=== PATIENT | female | born 1950 | race Caucasian/White ===

== ENCOUNTER 2016-12-27 10:30 | Inpatient (IN) | payer OTHER, MEDICARE ==
[~2016-12-27] VITALS: Ht 157.5 cm; Wt 76.2 kg
--- NOTE | 2016-12-27 11:16 | ED Cough/URI ---
General Chief Complaint: Fever-Adult/Adol Stated Complaint: FEVER/CONGESTION Nursing Triage Note: PT REPORTS COUGH FOR SEVERAL WEEKS AND FEVER AND MALAISE SINCE YESTERDAY. SHE REPORTS TAKING TYLENOL AND IBUPROFEN AT HOME. Source: patient Exam Limitations: no limitations History of Present Illness Time seen by provider: 11:15 Initial Comments To ER with a fever up to 103 since yesterday according to family. She is also had a productive cough for several weeks according to family. Timing/Duration: getting worse Severity/Quality: productive cough Prior Episodes/Possible Cause: no prior episodes Associated Symptoms: denies symptoms, cough Allergies and Home Medications Allergies Uncoded Allergies: PCN (Allergy, Unknown, 05/01/11) SULFA (Allergy, Unknown, 05/01/11) Constitutional: see HPI chills fever malaise EENTM: see HPI Respiratory: no symptoms reported see HPI cough Cardiovascular: no symptoms reported Genitourinary: no symptoms reported Musculoskeletal: no symptoms reported Skin: no symptoms reported Psychiatric/Neurological: No Symptoms Reported Hematologic/Lymphatic: No Symptoms Reported Past Mqwjbyb-Hchkrz-Xjfwpa Hx Patient Social History Alcohol Use: Denies Use Recreational Drug Use: No Smoking Status: Never a Smoker Recent Foreign Travel: No Contact w/Someone Who Travel: No Recent Infectious Disease Expo: No Recent Hopitalizations: No Physical Abuse Screen: No Sexual Abuse: No Immunizations Up To Date Date of Pneumonia Vaccine: Sep 11, 2016 Date of Influenza Vaccine: Sep 11, 2016 Seasonal Allergies Seasonal Allergies: Yes Surgeries HX Surgeries: Yes (COLONOSCOPY ) Respiratory Hx Respiratory Disorders: No Cardiovascular Hx Cardiac Disorders: Yes Cardiac Disorders: Chronic Edema/Swelling, High Cholesterol Neurological Hx Neurological Disorders: No Genitourinary Hx Genitourinary Disorders: No Gastrointestinal Hx Gastrointestinal Disorders: Yes Gastrointestinal Disorders: Gastroesophageal Reflux Musculoskeletal Hx Musculoskeletal Disorders: Yes (LUPUS) Endocrine Hx Endocrine Disorders: Yes Endocrine Disorders: Hypothyroidsim HEENT HX ENT Disorders: No Cancer Hx Cancer: No Psychosocial Hx Psychiatric Problems: No Physical Exam Vital Signs Vital Sign - Last 12Hours 12/27/16 10:47 Temp 99.1 Pulse 87 Resp 16 B/P 101/53 Pulse Ox 94 O2 Delivery Room Air Capillary Refill : Less Than 3 Seconds General Appearance: WD/WN no apparent distress Eyes: Bilateral Eye EOMI, Bilateral Eye Normal Inspection, Bilateral Eye PERRL HEENT: PERRL/EOMI normal ENT inspection TMs normal pharynx normal Neck: non-tender full range of motion suppleNo lymphadenopathy (R), No lymphadenopathy (L) Respiratory: lungs clear normal breath sounds no respiratory distress no accessory muscle use Cardiovascular: regular rate, rhythm no murmur Gastrointestinal: normal bowel sounds non tender soft Extremities: normal range of motion non-tender Neurologic/Psychiatric: alert normal mood/affect oriented x 3 Skin: normal color warm/dry Progress/Results/Core Measures Results/Orders Lab Results Laboratory Tests Test 12/27/16 11:20 Range/Units Anion Gap 15 H 5-14 MMOL/L BUN/Creatinine Ratio 20 Band Neutrophils 23 % Basophils # (Auto) 0.0 0.0-0.1 10^3/uL Basophils % (Manual) 0 % Basophils (%) (Auto) 0 0-10 % Blood Morphology Comment NORMAL Blood Urea Nitrogen 25 H 7-18 MG/DL Calcium Level 9.2 8.5-10.1 MG/DL Carbon Dioxide Level 23 21-32 MMOL/L Chloride Level 97 L 98-107 MMOL/L Creatinine 1.28 0.60-1.30 MG/DL Eosinophils # (Auto) 0.0 0.0-0.3 10^3/uL Eosinophils % (Manual) 0 % Eosinophils (%) (Auto) 0 0-10 % Estimat Glomerular Filtration Rate 42 Glucose Level 108 H 70-105 MG/DL Hematocrit 35 35-52 % Hemoglobin 12.0 11.5-16.0 G/DL Lymphocytes # (Auto) 0.9 L 1.0-4.0 X 10^3 Lymphocytes % (Manual) 4 % Lymphocytes (%) (Auto) 3 L 12-44 % Mean Corpuscular Hemoglobin 31 25-34 PG Mean Corpuscular Hemoglobin Concent 34 32-36 G/DL Mean Corpuscular Volume 92 80-99 FL Mean Platelet Volume 9.8 7.4-10.4 FL Monocytes # (Auto) 1.3 H 0.0-1.0 X 10^3 Monocytes % (Manual) 4 % Monocytes (%) (Auto) 5 0-12 % Neutrophils # (Auto) 24.7 H 1.8-7.8 X 10^3 Neutrophils % (Manual) 69 % Neutrophils (%) (Auto) 92 H 42-75 % Platelet Count 276 130-400 10^3/uL Potassium Level 3.0 L 3.6-5.0 MMOL/L Red Blood Count 3.84 L 4.35-5.85 10^6/uL Red Cell Distribution Width 13.2 10.0-14.5 % Sodium Level 135 135-145 MMOL/L White Blood Count 26.9 H 4.3-11.0 10^3/uL Micro Results Microbiology 12/27/16 Influenza Types A,B Antigen (KARON) - Final, Complete My Orders Orders-AGUEDA BO GENERATOR OPERATOR STRAIGHT BEVEL GEAR Cbc With Automated Diff (12/27/16 11:06) Influenza A And B Antigens (12/27/16 11:06) Chest Pa/Lat (2 View) (12/27/16 11:06) Basic Metabolic Panel (12/27/16 11:15) Manual Differential (12/27/16 11:20) Blood Culture (12/27/16 11:33) Lactic Acid Analyzer (12/27/16 11:33) Ua Culture If Indicated (12/27/16 11:33) Saline Lock/Iv-Start (12/27/16 11:33) Ct Chest W (12/27/16 11:41) Iohexol Injection (Omnipaque 300 Mg/Ml 5 (12/27/16 12:00) Ns (Ivpb) (Sodium Chloride 0.9% Ivpb Bag (12/27/16 12:00) Vital Signs/I&O Vital Sign - Last 12Hours 12/27/16 10:47 Temp 99.1 Pulse 87 Resp 16 B/P 101/53 Pulse Ox 94 O2 Delivery Room Air Blood Pressure Mean: 69 Diagnostic Imaging Diagonstic Imaging: Xray Plain Films/CT/US/NM/MRI: chest Comments NAME: ALLISON [facility]LOW [facility] REC#: [id number] PT STATUS: REG ER : 1950 PHYSICIAN: AGUEDA BO GENERATOR OPERATOR [employer] ADMIT DATE: 12/27/16/ER Draft Date of Exam:12/27/16 CHEST PA/LAT (2 VIEW) INDICATION: Fever, abnormal auscultation. FINDINGS: There is an abnormal right upper lobe ovoid parenchymal opacity measuring a transverse diameter of 7.1 cm, less well demarcated on the lateral view. There is a suggestion of some marginal air bronchograms associated with this density. In the setting of fever, pneumonia would be the leading consideration, however owing to its morphology, this will require followup to confirm its resolution as neoplasm could not be excluded. Hilar and mediastinal contours are normal. The left lung clear lung volumes are normal. There is no effusion. IMPRESSION: Ovoid parenchymal opacity in the right upper lobe in the setting of fever most likely reflects pneumonia but followup within 1 to 2 weeks is recommended. Chest radiographs are otherwise unremarkable. Dictated on workstation # [id number] Dict: 12/27/16 1138 Trans: 12/27/16 1151 [facility] [id number] Interpreted by: GAYE MCFARLANE Electronically signed by: Departure Impression Impression: Primary Impression: Pneumonia Qualified Code: J18.1 - Lobar pneumonia, unspecified organism Disposition: HOME, SELF-CARE Condition: Stable Departure-Patient Inst. Decision time for Depature: 11:56 Referrals: CARMELA GUERRA MD (PCP/Family) Primary Care Physician Patient Instructions: Pneumonia, Adult (DC) Add. Discharge Instructions: 1. return to ER for any concerns 2. Follow up with your doctor later this week ' All discharge instructions reviewed with patient and/or family. Voiced understanding. Scripts Levofloxacin (Levaquin)500 Mg Ctmghl498 Mg PO DAILY #7 TAB Prov:AGUEDA BO APRN 12/27/16 AGUEDA BO APRN Dec 27, 2016 11:16
[2016-12-27 11:28] LABS: BASOPHILS % (AUTO) 0 % (0-10); EOSINOPHILS % (AUTO) 0 % (0-10); LYMPHOCYTES # (AUTO) 0.9 X 10^3 (1.0-4.0); LYMPHOCYTES % (AUTO) 3 % (12-44); MEAN CORPUSCULAR HEMOGLOBIN 31 PG (25-34); MEAN CORPUSCULAR HGB CONC 34 G/DL (32-36); MEAN CORPUSCULAR VOLUME 92 FL (80-99); MEAN PLATELET VOLUME 9.8 FL (7.4-10.4); MONOCYTES # (AUTO) 1.3 X 10^3 (0.0-1.0); MONOCYTES % (AUTO) 5 % (0-12); NEUTROPHILS # (AUTO) 24.7 X 10^3 (1.8-7.8); NEUTROPHILS % (AUTO) 92 % (42-75); PLATELET COUNT 276 10^3/uL (130-400); RED BLOOD COUNT 3.84 10^6/uL (4.35-5.85); RED CELL DISTRIBUTION WIDTH 13.2 % (10.0-14.5); WHITE BLOOD COUNT 26.9 10^3/uL (4.3-11.0)
[2016-12-27 11:44] LABS: CALCIUM 9.2 MG/DL (8.5-10.1); CREATININE SERUM 1.28 MG/DL (0.60-1.30)
[2016-12-27 11:48] LABS: BAND NEUTROPHILS 23 %; BASOPHILS % (MANUAL) 0 %; EOSINOPHILS % (MANUAL) 0 %; LYMPHOCYTES % (MANUAL) 4 %; NEUTROPHILS % (MANUAL) 69 %
--- NOTE | 2016-12-27 11:51 | Diagnostic Imaging Report ---
INDICATION: Fever, abnormal auscultation. FINDINGS: There is an abnormal right upper lobe ovoid parenchymal opacity measuring a transverse diameter of 7.1 cm, less well demarcated on the lateral view. There is a suggestion of some marginal air bronchograms associated with this density. In the setting of fever, pneumonia would be the leading consideration, however owing to its morphology, this will require followup to confirm its resolution as neoplasm could not be excluded. Hilar and mediastinal contours are normal. The left lung clear lung volumes are normal. There is no effusion. IMPRESSION: Ovoid parenchymal opacity in the right upper lobe in the setting of fever most likely reflects pneumonia but followup within 1 to 2 weeks is recommended. Chest radiographs are otherwise unremarkable. Dictated by: Dictated on workstation # [id number]
[2016-12-27] MEDS ORDERED: LEVO500T2 PO (11:58)
[2016-12-27] MEDS ORDERED: IOHEXOL 300 MG/ML 50 ML (OMNIPAQUE 300) VIAL IV ONE (12:00)
[2016-12-27] MEDS ORDERED: NS 100 ML (IVPB) BAG IV ONE (12:00)
[2016-12-27] MEDS ORDERED: CEFEPIME INJECTION 2,000 MG in NORMAL SALINE (BAXTER MINI) 50 ML IV ONE (12:45)
--- NOTE | 2016-12-27 12:46 | Diagnostic Imaging Report ---
PROCEDURE: CT chest with contrast only. TECHNIQUE: Multiple contiguous axial images were obtained through the chest after administration of intravenous contrast. INDICATION: Cough, fever, wheeze, abnormal chest x-ray. FINDINGS: Corresponding to the radiographic abnormality is a consolidative type parenchymal infiltrate in the right upper lobe at the apex is present. This does contain multiple predominately peripheral air bronchograms. Its morphology, density and appearance, particularly given the history, is most compatible with pneumonia but as discussed on earlier chest x-ray, this requires radiographic followup with its treatment. Repeat chest x-ray within 2 weeks' time recommended. Right paratracheal superior mediastinal node is not an unexpected finding given the likely adjacent pneumonia. This measures 13 mm. No suspicious tissue in the subcarinal mediastinum. Some mild gaseous distention of the mid to upper third of the thoracic esophagus. The upper abdomen reveals a nonfocal partially visualized liver, negative the adrenals, no upper abdominal lymphadenopathy. The thoracic aorta is patent and nonaneurysmal. There is no central pulmonary arterial filling defect. The heart size and pericardium are unremarkable. There is no pleural fluid. There was no evidence for abscess or empyema. IMPRESSION: 1. Focal consolidative changes, predominantly airspaced disease. The right upper lobe is most suggestive of pneumonia with likely mild reactive adenopathy. Given the opacities, density and morphology, radiographic followup is needed. Repeat chest x-ray within within 2 weeks' time following treatment is recommended. 2. Distention of the thoracic esophagus without identifiable cause. No evidence for abscess or empyema. Dictated by: Dictated on workstation # [id number]
[2016-12-27 13:45] VITALS: BP 147/67
[2016-12-27] MEDS ORDERED: VANCOMYCIN 1500 MG/NS 500 ML IVPB IV NR ×2 (14:30)
[2016-12-27] MEDS: NS W/KCL 40 MEQ/L 1,000 ML IV SCH ×2 (14:31→22:15)
[2016-12-27] MEDS ORDERED: LORA10CA PO (15:08)
[2016-12-27] MEDS ORDERED: NABU750T PO (15:10)
[2016-12-27] MEDS ORDERED: LEVO112T2 PO (15:10)
[2016-12-27] MEDS ORDERED: OMEP20TA33 PO (15:11)
[2016-12-27] MEDS ORDERED: HYDR25TA4 PO (15:12)
[2016-12-27] MEDS ORDERED: EZET1TAB21 PO (15:18)
[2016-12-27] MEDS ORDERED: AMLO5TAB4 PO (15:18)
[2016-12-27] MEDS ORDERED: MULT-974 PO (15:21)
[2016-12-27] MEDS: ACETAMINOPHEN 325 MG TABLET/CAPLET (TYLENOL) PO PRN ×2 (15:28→21:32)
[2016-12-27 15:40] VITALS: BP 93/41
[2016-12-27] MEDS ORDERED: LEVOFLOXACIN 750 MG/D5W 150 ML PRE-MIX IV SCH (16:00)
[2016-12-27] MEDS ORDERED: RT-ALBUTEROL/IPRATROPIUM 3 ML (DUONEB) VIAL INH SCH (18:00)
[2016-12-27] MEDS ORDERED: KCL 20 MEQ TAB (K-DUR) PO ONE (19:30)
--- NOTE | 2016-12-27 19:32 | History & Physicial ---
History of Present Illness History of Present Illness Reason for visit/HPI patient came to the emergency room complaining of coughing for several weeks. Fever 103 and malaise since yesterday. Chest x-ray shows pneumonia. Patient admitted. Surgeries partial hysterectomy 1973. Family history denies asthma TB diabetes heart disease lung disease cancer area History of lupus since 1974 Date of Admission Dec 27, 2016 at 12:40 I consulted on this patient on 12/27/16 19:30 Attending Physician Shama Herrmann MD Admitting Physician Shama Herrmann MD Consult Allergies and Home Medications Allergies Uncoded Allergies: PCN (Allergy, Unknown, 05/01/11) SULFA (Allergy, Unknown, 05/01/11) Home Medications Amlodipine Besylate 5 Mg Tablet 5 MG PO DAILY (Reported) Ezetimibe/Simvastatin 1 Each Tablet 1 EACH PO DAILY (Reported) Hydrochlorothiazide 25 Mg Tablet 25 MG PO DAILY (Reported) Levofloxacin 500 Mg Tablet #7 500 MG PO DAILY Prescribed by: AGUEDA BO on 12/27/16 1158 Levothyroxine Sodium 112 Mcg Tablet 112 MCG PO DAILY (Reported) Loratadine 10 Mg Capsule #0 10 MG PO DAILY (Reported) Multivitamin 1 Each Tablet 1 EACH PO DAILY (Reported) Nabumetone 750 Mg Tablet #0 1,500 MG PO DAILY (Reported) Omeprazole Magnesium 20 Mg Tablet.dr 20 MG PO DAILY (Reported) Past Yhhyuug-Llfrjd-Mtvuks Hx Patient Social History Marrital Status: Alcohol Use: Denies Use Recreational Drug Use: No Smoking Status: Never a Smoker Physical Abuse Screen: No Sexual Abuse: No Recent Foreign Travel: No Contact w/other who traveled: No Recent Hopitalizations: No Recent Infectious Disease Expo: No Immunizations Up To Date Date of Pneumonia Vaccine: Sep 11, 2016 Date of Influenza Vaccine: Sep 11, 2016 Seasonal Allergies Seasonal Allergies: Yes Surgeries HX Surgeries: Yes (COLONOSCOPY ) Surgeries: Hysterectomy Respiratory Hx Respiratory Disorders: No Cardiovascular Hx Cardiovascular Disorders: Yes Cardiac Disorders: Chronic Edema/Swelling, High Cholesterol, Hypertension Neurological Hx Neurological Disorders: No Genitourinary Hx Genitourinary Disorders: No Gastrointestinal Hx Gastrointestinal Disorders: Yes Gastrointestinal Disorders: Gastroesophageal Reflux Musculoskeletal Hx Musculoskeletal Disorders: Yes (LUPUS) Endocrine Hx Endocrine Disorders: Yes Endocrine Disorders: Hypothyroidsim HEENT HX ENT Disorders: No HEENT Disorders: Cataract Cancer Hx Cancer: No Psychosocial Hx Psychiatric Problems: No Constitutional: fever malaise EENTM: no symptoms reported Respiratory: cough Cardiovascular: no symptoms reported Gastrointestinal: no symptoms reported Genitourinary: no symptoms reported Physical Exam Vital Signs Vital Sign - Last 12Hours 12/27/16 10:47 Temp 99.1 Pulse 87 Resp 16 B/P 101/53 Pulse Ox 94 O2 Delivery Room Air Capillary Refill : Less Than 3 Seconds General Appearance: No Apparent Distress WD/WN Eyes: Bilateral Eye Normal Inspection HEENT: Normal ENT Inspection Neck: Full Range of Motion Normal Inspection Non Tender Respiratory: Chest Non Tender Normal Breath Sounds No Accessory Muscle Use No Respiratory Distress Cardiovascular: Regular Rate, Rhythm No Murmur Gastrointestinal: Non Tender Soft Assessment/Plan Assessment and Plan pneumonia. Lupus. Hypertension history Clinical Quality Measures DVT/VTE Risk/Contraindication: Risk Factor Score Per Nursin RFS Level Per Nursing on Admit: 3=High Contraindications-Mechi: Other *list below* MARTHA BALLARD DO Dec 27, 2016 19:32
[2016-12-27 20:06] VITALS: BP 94/58
[2016-12-27] MEDS: ENOXAPARIN 40 MG/0.4 ML (LOVENOX) SYR SC SCH (20:10)
[2016-12-27 23:27] VITALS: BP 94/58
[2016-12-28] MEDS: NS W/KCL 40 MEQ/L 1,000 ML IV SCH ×3 (03:56→21:53)
[2016-12-28 04:00] VITALS: BP 112/71
[2016-12-28] MEDS: ACETAMINOPHEN 325 MG TABLET/CAPLET (TYLENOL) PO PRN (04:01)
[2016-12-28 04:57] LABS: BASOPHILS % (AUTO) 0 % (0-10); EOSINOPHILS % (AUTO) 0 % (0-10); LYMPHOCYTES # (AUTO) 1.5 X 10^3 (1.0-4.0); LYMPHOCYTES % (AUTO) 6 % (12-44); MEAN CORPUSCULAR HEMOGLOBIN 31 PG (25-34); MEAN CORPUSCULAR HGB CONC 34 G/DL (32-36); MEAN CORPUSCULAR VOLUME 92 FL (80-99); MEAN PLATELET VOLUME 9.8 FL (7.4-10.4); MONOCYTES # (AUTO) 0.9 X 10^3 (0.0-1.0); MONOCYTES % (AUTO) 4 % (0-12); NEUTROPHILS # (AUTO) 20.6 X 10^3 (1.8-7.8); NEUTROPHILS % (AUTO) 90 % (42-75); PLATELET COUNT 234 10^3/uL (130-400); RED BLOOD COUNT 3.41 10^6/uL (4.35-5.85); RED CELL DISTRIBUTION WIDTH 13.5 % (10.0-14.5)
[2016-12-28 05:16] LABS: ANION GAP 10 MMOL/L (5-14); BLOOD UREA NITROGEN 20 MG/DL (7-18); BUN/CREATININE RATIO 25; CALCIUM 8.5 MG/DL (8.5-10.1); CARBON DIOXIDE 22 MMOL/L (21-32); CHLORIDE 102 MMOL/L (98-107); CREATININE SERUM 0.79 MG/DL (0.60-1.30); GFR ESTIMATED > 60; GLUCOSE 83 MG/DL (70-105); POTASSIUM 3.9 MMOL/L (3.6-5.0); SODIUM 134 MMOL/L (135-145)
[2016-12-28] MEDS: PANTOPRAZOLE 40 MG (PROTONIX) TAB PO SCH (06:12)
[2016-12-28] MEDS: RT-ALBUTEROL/IPRATROPIUM 3 ML (DUONEB) VIAL INH PRN (08:25)
[2016-12-28 08:31] VITALS: BP 111/73
[2016-12-28] MEDS ORDERED: [UNRECOGNIZED DRUG - OTHER] PO SCH (09:00)
[2016-12-28] MEDS ORDERED: IBUPROFEN 800 MG (MOTRIN) TAB PO SCH (09:00)
[2016-12-28] MEDS ORDERED: NABUMETONE PO SCH (09:00)
[2016-12-28] MEDS ORDERED: EZETIMIBE PO SCH (09:00)
[2016-12-28] MEDS ORDERED: NON-FORMULARY MEDICATION 1 EA EA (Loratadine (Claritin) 10 MG) PO SCH (09:00)
[2016-12-28] MEDS ORDERED: SIMVASTATIN PO SCH (09:00)
[2016-12-28] MEDS ORDERED: NON-FORMULARY MEDICATION 1 EA EA (Omeprazole Magnesium (Prilosec Otc) 20 MG) PO SCH (09:00)
[2016-12-28] MEDS ORDERED: LEVOTHYROXINE 112 MCG (LEVOTHROID) TAB PO SCH (09:00)
[2016-12-28] MEDS: HYDROCHLOROTHIAZIDE 25 MG (HCTZ) TAB PO SCH (09:19)
[2016-12-28] MEDS: LORATADINE (CLARITIN) 10 MG TAB PO SCH (09:19)
[2016-12-28] MEDS: amLODIPine 5 MG (NORVASC) TAB PO SCH (09:19)
--- NOTE | 2016-12-28 09:33 | Progress Note (SOAP) ---
Subjective Subjective/Events-last exam PT REPORTS A ROUGH NIGHT LAST NIGHT DUE TO COUGH, FATIGUE, DYSPNEA. SHE STATES THAT SHE IS FEELING BETTER, BUT HAD A FEVER LAST NIGHT AND CHEST WALL AND SHOULDER PAIN ON THE RIGHT SIDE Review of Systems General: Fatigue Malaise Appetite (DECREASED) HEENT: No Head Aches, No Dysphasia Pulmonary: Dyspnea Cough Pleuritic Chest Pain Cardiovascular: No: Chest Pain, Edema Gastrointestinal: No: Abdominal Pain, Constipation, Diarrhea, Nausea Genitourinary: No Dysuria Neurological: No: Weakness Objective Exam Vital Signs Date Time Temp Pulse Resp B/P Pulse Ox O2 Delivery O2 Flow Rate FiO2 12/28/16 08:31 97.5 79 20 111/73 96 Room Air 12/28/16 08:25 94 12/28/16 04:00 100.4 91 20 112/71 96 Room Air 12/27/16 23:27 99.5 87 20 94/58 93 Room Air 12/27/16 20:10 Room Air 12/27/16 20:06 99.6 86 20 94/58 95 Room Air 12/27/16 17:03 101.6 12/27/16 15:40 101.9 99 20 93/41 94 Room Air 12/27/16 15:28 101.2 12/27/16 15:14 94 12/27/16 14:20 94 Room Air 12/27/16 14:15 94 12/27/16 13:45 100.6 99 24 147/67 94 Room Air 12/27/16 13:25 99.1 85 16 95 Room Air 12/27/16 10:47 99.1 87 16 101/53 94 Room Air I & O 12/28/16 07:00 Intake Total 1300 ml Output Total 1700 ml Balance -400 ml Capillary Refill : Less Than 3 Seconds General Appearance: No Apparent Distress WD/WN HEENT: PERRL/EOMI Pharynx Normal Respiratory: Crackles (UPPER LOBE ON RIGHT) Cardiovascular: Regular Rate, Rhythm Gastrointestinal: normal bowel sounds non tender soft no organomegaly no pulsatile mass Extremity: Normal Capillary Refill Non Tender No Calf Tenderness No Pedal Edema Neurologic/Psychiatric: Alert Oriented x3 No Motor/Sensory Deficits Normal Mood/Affect Skin: Warm/Dry Lymphatic: No Adenopathy Results Lab Laboratory Tests 12/27/16 11:20: Anion Gap 15H, BUN/Creatinine Ratio 20, Band Neutrophils 23, Basophils # (Auto) 0.0, Basophils % (Manual) 0, Basophils (%) (Auto) 0, Blood Morphology Comment NORMAL, Blood Urea Nitrogen 25H, Calcium Level 9.2, Carbon Dioxide Level 23, Chloride Level 97L, Creatinine 1.28, Eosinophils # (Auto) 0.0, Eosinophils % ( Manual) 0, Eosinophils (%) (Auto) 0, Estimat Glomerular Filtration Rate 42, Glucose Level 108H, Hematocrit 35, Hemoglobin 12.0, Lymphocytes # (Auto) 0.9L, Lymphocytes % (Manual) 4, Lymphocytes (%) (Auto) 3L, Mean Corpuscular Hemoglobin 31, Mean Corpuscular Hemoglobin Concent 34, Mean Corpuscular Volume 92, Mean Platelet Volume 9.8, Monocytes # (Auto) 1.3H, Monocytes % (Manual) 4, Monocytes (%) (Auto) 5, Neutrophils # (Auto) 24.7H, Neutrophils % (Manual) 69, Neutrophils (%) (Auto) 92H, Platelet Count 276, Potassium Level 3.0L, Red Blood Count 3.84L, Red Cell Distribution Width 13.2, Sodium Level 135, White Blood Count 26.9H 12/27/16 11:57: Lactic Acid Level 1.2 12/28/16 04:30: Basophils # (Auto) 0.0, Basophils (%) (Auto) 0, Eosinophils # (Auto) 0.0, Eosinophils (%) (Auto) 0, Hematocrit 32L, Hemoglobin 10.6L, Lymphocytes # (Auto ) 1.5, Lymphocytes (%) (Auto) 6L, Mean Corpuscular Hemoglobin 31, Mean Corpuscular Hemoglobin Concent 34, Mean Corpuscular Volume 92, Mean Platelet Volume 9.8, Monocytes # (Auto) 0.9, Monocytes (%) (Auto) 4, Neutrophils # (Auto ) 20.6H, Neutrophils (%) (Auto) 90H, Platelet Count 234, Red Blood Count 3.41L, Red Cell Distribution Width 13.5, White Blood Count 23.0H 12/28/16 04:38: Anion Gap 10, BUN/Creatinine Ratio 25, Blood Urea Nitrogen 20H, Calcium Level 8.5, Carbon Dioxide Level 22, Chloride Level 102, Creatinine 0.79, Estimat Glomerular Filtration Rate > 60, Glucose Level 83, Potassium Level 3.9, Sodium Level 134L Microbiology 12/27/16 Influenza Types A,B Antigen (KARON) - Final, Complete Assessment/Plan Assessment/Plan Assess & Plan/Chief Complaint ATYPICAL UPPER LOBE PNEUMONIA LEUKOCYTOSIS HYPOTHYROIDISM FEVER INFLAMMATORY ARTHRITIS ATYPICAL UPPER LOBE PNEUMONIA WITH LEUKOCYTOSIS - WITHOUT SEPSIS - CONTINUE WITH IV ANTIBIOTICS, MONITOR WHITE CELLS, MONITOR CHEST XRAY, CONTINUE WITH BREATHING TREATMENTS - START ON SCHEDULED TREATMENTS AND ADVAIR. HYPOTHYROIDISM - PT ON HOME MEDS FEVER - SUPPORTIVE CARE INFLAMMATORY ARTHRITIS - START ON IBUPROFEN SCHEDULED WHILE IN HOSPITAL. Diagnosis/Problems: Clinical Quality Measures DVT/VTE Risk/Contraindication: Risk Factor Score Per Nursin RFS Level Per Nursing on Admit: 3=High Contraindications-Mechi: Other *list below* CARMELA GUERRA MD Dec 28, 2016 09:33
[2016-12-28] MEDS ORDERED: NABU750T PO (10:44)
[2016-12-28] MEDS ORDERED: OMEP20CA12 PO (10:44)
[2016-12-28] MEDS ORDERED: LACT1CAP39 PO (10:44)
[2016-12-28] MEDS: RT-ADVAIR HFA 115/21 MCG PER PUFF IH SCH ×2 (11:13→23:55)
[2016-12-28 12:00] VITALS: BP 107/73
[2016-12-28] MEDS ORDERED: CEFEPIME 2 GM/NS 50 ML IVPB IV SCH ×2 (12:00)
[2016-12-28] MEDS ORDERED: VANCOMYCIN 1250 MG/NS 250 ML IVPB IV SCH ×2 (14:00)
[2016-12-28] MEDS ORDERED: CATHETER FLUSH 10 ML SYR IV PRN (14:30)
[2016-12-28] MEDS: RT-ALBUTEROL SULF 2.5 MG/3 ML PRE-MIX VIAL INH SCH ×2 (15:46→23:55)
[2016-12-28 16:40] VITALS: BP 115/65
[2016-12-28] MEDS: IBUPROFEN TABLET 200 MG TAB PO SCH (18:28)
[2016-12-28] MEDS: ENOXAPARIN 40 MG/0.4 ML (LOVENOX) SYR SC SCH (18:28)
[2016-12-28 19:23] VITALS: BP 109/73
[2016-12-28] MEDS: eZETimibe 10 MG (ZETIA) TABLET PO SCH (21:04)
[2016-12-28] MEDS: SIMvastatin 40 MG (ZOCOR) TAB PO SCH (21:04)
[2016-12-29] VITALS: BP 118/74
[2016-12-29] MEDS: IBUPROFEN TABLET 200 MG TAB PO SCH ×3 (01:04→18:17)
[2016-12-29 04:00] VITALS: BP 118/76
[2016-12-29] MEDS: NS W/KCL 40 MEQ/L 1,000 ML IV SCH (06:05)
[2016-12-29] MEDS: PANTOPRAZOLE 40 MG (PROTONIX) TAB PO SCH (06:05)
[2016-12-29] MEDS: MULTIVIT W/MINERALS TAB (THERAGRAN M) PO SCH (06:06)
[2016-12-29] MEDS: LEVOTHYROXINE 112 MCG (LEVOTHROID) TAB PO SCH (06:07)
[2016-12-29 07:41] LABS: MEAN PLATELET VOLUME 11.1 FL (7.4-10.4); RED BLOOD COUNT 3.12 10^6/uL (4.35-5.85); RED CELL DISTRIBUTION WIDTH 13.6 % (10.0-14.5); WHITE BLOOD COUNT 12.7 10^3/uL (4.3-11.0)
--- NOTE | 2016-12-29 07:46 | Diagnostic Imaging Report ---
INDICATION: Pneumonia. COMPARISON: 12/27/2016. FINDINGS: Right upper lobe masslike consolidation has not significantly changed. No new airspace disease. No pleural effusion or pneumothorax. Normal heart size. Mild tortuosity of the thoracic aorta is unchanged. IMPRESSION: Right upper lobe masslike consolidation is unchanged. This may represent pneumonia in the appropriate setting. Advised followup PA and lateral chest radiographs in 4 weeks after appropriate medical management to ensure resolution and exclude underlying mass lesion. Dictated by: Dictated on workstation # [id number]
[2016-12-29 08:00] VITALS: BP 140/85
[2016-12-29 08:02] LABS: ALANINE AMINOTRANSFERASE 19 U/L (0-55); ALBUMIN 2.9 G/DL (3.2-4.5); ANION GAP 8 MMOL/L (5-14); ASPARTATE AMINO TRANSFERASE 23 U/L (5-34); BILIRUBIN,TOTAL 0.3 MG/DL (0.1-1.0); BLOOD UREA NITROGEN 8 MG/DL (7-18); BUN/CREATININE RATIO 13; CALCIUM 8.5 MG/DL (8.5-10.1); CARBON DIOXIDE 21 MMOL/L (21-32); CHLORIDE 113 MMOL/L (98-107); CREATININE SERUM 0.63 MG/DL (0.60-1.30); GFR ESTIMATED > 60; GLUCOSE 88 MG/DL (70-105); POTASSIUM 4.1 MMOL/L (3.6-5.0); SODIUM 142 MMOL/L (135-145); TOTAL PROTEIN 5.6 G/DL (6.4-8.2)
[2016-12-29] MEDS: HYDROCHLOROTHIAZIDE 25 MG (HCTZ) TAB PO SCH (08:37)
[2016-12-29] MEDS: amLODIPine 5 MG (NORVASC) TAB PO SCH (08:37)
[2016-12-29] MEDS: LORATADINE (CLARITIN) 10 MG TAB PO SCH (08:37)
[2016-12-29] MEDS ORDERED: OMEPRAZOLE 20 MG (PriLOSEC) CAP NON-FORMULARY PO SCH (09:00)
--- NOTE | 2016-12-29 09:27 | Progress Note (SOAP) ---
Subjective Subjective/Events-last exam pt reports that she is feeling better today - she felt better with breathing treatments, no fevers. Review of Systems General: Fatigue Malaise HEENT: No Head Aches Pulmonary: Dyspnea Cough Cardiovascular: No: Chest Pain Gastrointestinal: No: Abdominal Pain, Nausea Genitourinary: No Dysuria Neurological: : WeaknessNo: Confusion Objective Exam Vital Signs Date Time Temp Pulse Resp B/P Pulse Ox O2 Delivery O2 Flow Rate FiO2 12/29/16 08:00 98.2 73 16 140/85 97 Room Air 12/29/16 04:00 98.1 75 18 118/76 96 Room Air 12/29/16 00:00 98.2 77 18 118/74 93 Room Air 12/28/16 20:15 Room Air 12/28/16 19:23 99.3 86 18 109/73 100 Room Air 12/28/16 16:40 98.7 91 18 115/65 96 Room Air 12/28/16 15:46 92 12/28/16 12:00 98.0 79 20 107/73 96 Room Air 12/28/16 11:13 92 I & O 12/29/16 07:00 Intake Total 3620 ml Output Total 2250 ml Balance 1370 ml Capillary Refill : Less Than 3 Seconds General Appearance: No Apparent Distress WD/WN HEENT: PERRL/EOMI Pharynx Normal Neck: Full Range of Motion Supple Respiratory: Chest Non Tender Crackles Decreased Breath Sounds Cardiovascular: Regular Rate, Rhythm Gastrointestinal: normal bowel sounds non tender soft no organomegaly no pulsatile mass Extremity: Normal Capillary Refill No Calf Tenderness No Pedal Edema Neurologic/Psychiatric: Alert Oriented x3 No Motor/Sensory Deficits Normal Mood/Affect svp business development II-XII Norm as Tested Skin: Normal Color Warm/Dry Lymphatic: No Adenopathy Results Lab Laboratory Tests 12/29/16 04:32: Alanine Aminotransferase (ALT/SGPT) 19, Albumin 2.9L, Alkaline Phosphatase 83, Anion Gap 8, Aspartate Amino Transf (AST/SGOT) 23, BUN/Creatinine Ratio 13, Blood Urea Nitrogen 8, Calcium Level 8.5, Carbon Dioxide Level 21, Chloride Level 113H, Creatinine 0.63, Estimat Glomerular Filtration Rate > 60, Glucose Level 88, Hematocrit 30L, Hemoglobin 9.6L, Mean Corpuscular Hemoglobin 31, Mean Corpuscular Hemoglobin Concent 33, Mean Corpuscular Volume 95, Mean Platelet Volume 11.1H, Platelet Count 233, Potassium Level 4.1, Red Blood Count 3.12L, Red Cell Distribution Width 13.6, Sodium Level 142, Total Bilirubin 0.3, Total Protein 5.6L, White Blood Count 12.7H Microbiology 12/27/16 Blood Culture - Preliminary, Resulted No growth 12/27/16 Influenza Types A,B Antigen (KARON) - Final, Complete Assessment/Plan Assessment/Plan Assess & Plan/Chief Complaint ATYPICAL UPPER LOBE PNEUMONIA LEUKOCYTOSIS HYPOTHYROIDISM FEVER INFLAMMATORY ARTHRITIS ATYPICAL UPPER LOBE PNEUMONIA WITH LEUKOCYTOSIS - WITHOUT SEPSIS - CONTINUE WITH IV ANTIBIOTICS, MONITOR WHITE CELLS, MONITOR CHEST XRAY, CONTINUE WITH BREATHING TREATMENTS - START ON SCHEDULED TREATMENTS AND ADVAIR. HYPOTHYROIDISM - PT ON HOME MEDS FEVER - SUPPORTIVE CARE INFLAMMATORY ARTHRITIS - START ON IBUPROFEN SCHEDULED WHILE IN HOSPITAL. Diagnosis/Problems: Clinical Quality Measures DVT/VTE Risk/Contraindication: Risk Factor Score Per Nursin RFS Level Per Nursing on Admit: 3=High Contraindications-Mechi: Other *list below* CARMELA GUERRA MD Dec 29, 2016 09:27
[2016-12-29] MEDS: RT-ALBUTEROL SULF 2.5 MG/3 ML PRE-MIX VIAL INH SCH ×3 (09:46→19:37)
[2016-12-29] MEDS: RT-ADVAIR HFA 115/21 MCG PER PUFF IH SCH ×2 (09:47→19:37)
[2016-12-29 12:00] VITALS: BP 130/80
[2016-12-29] MEDS: LEVOFLOXACIN 750 MG/D5W 150 ML PRE-MIX IV SCH (12:48)
[2016-12-29] MEDS ORDERED: TROUGH ORDER-PHARMACY XX NR (13:00)
[2016-12-29 16:03] VITALS: BP 126/75
[2016-12-29] MEDS: ENOXAPARIN 40 MG/0.4 ML (LOVENOX) SYR SC SCH (19:35)
[2016-12-29] MEDS: SIMvastatin 40 MG (ZOCOR) TAB PO SCH (20:11)
[2016-12-29] MEDS: eZETimibe 10 MG (ZETIA) TABLET PO SCH (20:11)
[2016-12-30] VITALS: BP 129/77
[2016-12-30] MEDS: IBUPROFEN TABLET 200 MG TAB PO SCH ×2 (01:41→08:09)
[2016-12-30 05:07] LABS: MEAN PLATELET VOLUME 10.3 FL (7.4-10.4); RED BLOOD COUNT 3.09 10^6/uL (4.35-5.85); RED CELL DISTRIBUTION WIDTH 13.3 % (10.0-14.5); WHITE BLOOD COUNT 7.6 10^3/uL (4.3-11.0)
[2016-12-30 05:25] LABS: ANION GAP 12 MMOL/L (5-14); BLOOD UREA NITROGEN 9 MG/DL (7-18); BUN/CREATININE RATIO 13; CALCIUM 9.1 MG/DL (8.5-10.1); CARBON DIOXIDE 22 MMOL/L (21-32); CHLORIDE 106 MMOL/L (98-107); CREATININE SERUM 0.68 MG/DL (0.60-1.30); GFR ESTIMATED > 60; GLUCOSE 99 MG/DL (70-105); POTASSIUM 3.9 MMOL/L (3.6-5.0); SODIUM 140 MMOL/L (135-145)
[2016-12-30] MEDS: PANTOPRAZOLE 40 MG (PROTONIX) TAB PO SCH (05:55)
[2016-12-30] MEDS: MULTIVIT W/MINERALS TAB (THERAGRAN M) PO SCH (05:55)
[2016-12-30] MEDS: LEVOTHYROXINE 112 MCG (LEVOTHROID) TAB PO SCH (05:55)
[2016-12-30 08:00] VITALS: BP 132/83
[2016-12-30] MEDS: amLODIPine 5 MG (NORVASC) TAB PO SCH (08:09)
[2016-12-30] MEDS: LORATADINE (CLARITIN) 10 MG TAB PO SCH (08:09)
[2016-12-30] MEDS: HYDROCHLOROTHIAZIDE 25 MG (HCTZ) TAB PO SCH (08:09)
[2016-12-30] MEDS ORDERED: LEVO750T9 PO (08:50)
[2016-12-30] MEDS ORDERED: LACT1TAB6 PO (08:50)
[2016-12-30] MEDS ORDERED: RT-ALBUINH IH (08:50)
--- NOTE | 2016-12-30 08:52 | Discharge Inst-Complex ---
PDI Med Rec & Follow Up Appt. New Medications: Albuterol Sulfate (Proair Hfa) 8.5 Gm Hfa.aer.ad 1-2 PUFF IH BID PRN #1 INH Lactobacillus Acidophilus (Acidophilus) 1 Each Tab.chew 1 EACH PO TID #30 TAB Levofloxacin (Levaquin) 750 Mg Tablet 750 MG PO DAILY #6 TAB Continued Medications: Amlodipine Besylate (Norvasc) 5 Mg Tablet 5 MG PO DAILY TAB Ezetimibe/Simvastatin (Vytorin 10-40 mg Tablet) 1 Each Tablet 1 TAB PO DAILY TAB Hydrochlorothiazide (Hydrochlorothiazide) 25 Mg Tablet 25 MG PO DAILY TAB Lactobacillus Rhamnosus GG (Culturelle) 1 Each Capsule 1 CAP PO DAILY CAP Levothyroxine Sodium (Synthroid) 112 Mcg Tablet 112 MCG PO DAILY TAB Loratadine (Claritin) 10 Mg Capsule 10 MG PO DAILY CAP Multivitamin (Multi-Vitamin Daily) 1 Each Tablet 1 TAB PO DAILY TAB Nabumetone (Nabumetone) 750 Mg Tablet 1500 MG PO DAILY TAB Omeprazole (Omeprazole) 20 Mg Capsule.dr 20 MG PO DAILY CAP Prescription: Transmitted to Pharmacy Patient Instructions: CHEST XRAY IN 3 WEEKS FROM DISCHARGE Activity, Diet and PDI Resume Normal Activity: Yes Discharge Diet: Regular Diet Diet After 24 Hours: Clear Liquid if Nauseous Drink 6-8 Glasses of Fluid/Day: Yes Driving Instructions: No Driving for 24 Hours Return to The Hospital For: ANY CONCERN FOR WORSENING SYMPTOMS Symptoms to Reoprt to : Appetite Changes, Fever Over 101 Degrees F, Pain/ Pressure in Chest, Cough Up/Vomit Blood, Pain/Pressure in Shoulder, Diarrhea( Persistant), Shortness of Breath For Problems or Questions: Contact Your Physician, Go to Emergency Room Infection Signs and Symptoms: Temperature Above 101 F CARMELA GUERRA MD Dec 30, 2016 08:52
--- NOTE | 2016-12-30 08:53 | Discharge Summary ---
Diagnosis/Chief Complaint Date of Admission Dec 27, 2016 at 12:40 Date of Discharge Discharge Date: Dec 30, 2016 Discharge Time: 1000 Admission Diagnosis Admission Diagnosis pneumonia. Lupus. Hypertension history Discharge Diagnosis ATYPICAL UPPER LOBE PNEUMONIA LEUKOCYTOSIS HYPOTHYROIDISM FEVER INFLAMMATORY ARTHRITIS Reason Hospital Visit patient came to the emergency room complaining of coughing for several weeks. Fever 103 and malaise since yesterday. Chest x-ray shows pneumonia. Patient admitted. Surgeries partial hysterectomy 1973. Family history denies asthma TB diabetes heart disease lung disease cancer area History of lupus since 1974 Discharge Summary Discharge Physical Examination Allergies: Coded Allergies: Penicillins (Verified Allergy, Unknown, 01/15/17) Sulfa (Sulfonamide Antibiotics) (Verified Allergy, Unknown, 01/15/17) Vitals & I&Os General Appearance: Alert, Oriented X3, Cooperative, No Acute Distress HEENT: Atraumatic, PERRLA, EOMI, Mucous Memb Moist/[place] Respiratory: Other (CRACKLES UPPER LOBE ON RIGHT) Cardiovascular: Regular Rate Abdominal: Normal Bowel Sounds, Soft, No Tenderness Extremities: No Clubbing, No Cyanosis, No Edema Skin: No Rashes Neuro: Normal Gait, Strength at 5/5 X4 Ext, Cranial Nerves 3-12 NL Psych/Mental Status: Mental Status NL, Mood NL Hospital Course ATYPICAL UPPER LOBE PNEUMONIA LEUKOCYTOSIS HYPOTHYROIDISM FEVER INFLAMMATORY ARTHRITIS ATYPICAL UPPER LOBE PNEUMONIA WITH LEUKOCYTOSIS - WITHOUT SEPSIS - CONTINUED WITH IV ANTIBIOTICS, MONITORED WHITE CELLS, MONITORED CHEST XRAY, CONTINUED WITH BREATHING TREATMENTS - PT IMPROVED - PLANNED ON ORAL ANTIBIOTICS OUTPATIENT, ADVAIR OUTPATIENT HYPOTHYROIDISM - PT ON HOME MEDS FEVER - SUPPORTIVE CARE INFLAMMATORY ARTHRITIS - START ON IBUPROFEN SCHEDULED WHILE IN HOSPITAL. Pending Labs Discharge Condition at discharge IMPROVED Instructions to patient/family Please see electonic discharge instructions given to patient. Discharge Medications Reviewed and agree with Discharge Medication list on patient's Discharge Instruction sheet Clinical Quality Measures DVT/VTE Risk/Contraindication: Risk Factor Score Per Nursin RFS Level Per Nursing on Admit: 3=High Contraindications-Mechi: Other *list below* CARMELA GUERRA MD Dec 30, 2016 08:53
[2016-12-30] MEDS: RT-ALBUTEROL SULF 2.5 MG/3 ML PRE-MIX VIAL INH SCH (09:54)
[2016-12-30] MEDS: RT-ALBUTEROL/IPRATROPIUM 3 ML (DUONEB) VIAL INH PRN (09:54)
[2016-12-30] MEDS: RT-ADVAIR HFA 115/21 MCG PER PUFF IH SCH (09:58)
[2016-12-30] MEDS: LEVOFLOXACIN 750 MG/D5W 150 ML PRE-MIX IV SCH (11:36)
[2016-12-30 12:00] VITALS: BP 129/81
[2016-12-30 15:00] VITALS: BP 129/81
== END 2016-12-30 14:20 | disposition home or self-care (01) | DRG 195 ==
LOC: EDUNIT# 10:30 → ER 10:31 → 4TH 12:40
PROVIDERS: ADMIT Family Medicine; ATTEND Family Medicine
DX: J18.9 Pneumonia, unspecified organism (principal); I10 Essential (primary) hypertension; E78.00 Pure hypercholesterolemia, unspecified; K21.9 Gastro-esophageal reflux disease without esophagitis; E03.9 Hypothyroidism, unspecified; M32.9 Systemic lupus erythematosus, unspecified
CPT/HCPCS: 36415; 71020; 71260; 80048; 80053; 83605; 85007; 85025; 85027; 87040; 87804; 94640; 94664; 94760; 96365

== ENCOUNTER 2017-01-13 05:49 | Outpatient (CLI) | payer OTHER, MEDICARE ==
[~2017-01-13] VITALS: Ht 157.5 cm; Wt 71.7 kg
[~2017-01-13 05:49] MED LIST: AMLO5TAB4 PO; EZET1TAB21 PO; HYDR25TA4 PO; LACT1CAP39 PO; LACT1TAB6 PO; LEVO112T2 PO; LEVO500T2 PO; LEVO750T9 PO; LORA10CA PO; MULT-974 PO; NABU750T PO; OMEP20CA12 PO; OMEP20TA33 PO; RT-ALBUINH IH
== END 2017-01-13 15:07 ==
LOC: PREOP 05:49
PROVIDERS: ATTEND Internal Medicine
DX: Z01.818 Encounter for other preprocedural examination (principal); D64.9 Anemia, unspecified; K92.1 Melena; Z85.038 Personal history of other malignant neoplasm of large intestine; R05 Cough

== ENCOUNTER 2017-01-15 08:45 | Day surgery (SDC) | payer OTHER, MEDICARE ==
[~2017-01-15] VITALS: Ht 157.5 cm; Wt 71.7 kg
--- OUTSIDE RECORDS SUMMARY | 2017-01-15 08:49 | XMS REPORT | Continuity of Care Document ---
Author Author [facility] Organization [facility] Address Unknown Phone Unavailable Allergies Active Description Code Type Severity Reaction Onset Reported/Identified Relationship to Patient Clinical Status Yes PCN PCN Unknown N/A 05/01/2011 Yes SULFA SULFA Unknown N/A 05/01/2011 Yes Penicillins [id number] Drug Allergy Unknown N/A 12/29/2016 Yes Sulfa (Sulfonamide Antibiotics) [id number] Drug Allergy Unknown N/A 12/29/2016 Medications Problems Date Dx Coded Attending Type Code Diagnosis Diagnosed By 01/08/2016 Ot V76.12 01/08/2016 Ot 211.3 01/08/2016 Ot 562.10 01/08/2016 Ot V16.0 01/08/2016 Ot V76.51 01/08/2016 Ot 793.82 01/08/2016 Ot V76.12 01/08/2016 Ot 793.80 01/08/2016 CARMELA GUERRA MD Ot V76.12 01/08/2016 Ot V76.12 01/08/2016 Ot 211.3 01/08/2016 Ot 562.10 01/08/2016 Ot V16.0 01/08/2016 Ot V76.51 01/08/2016 Ot 793.82 01/08/2016 Ot V76.12 01/08/2016 Ot 793.80 01/08/2016 CARMELA GUERRA MD Ot V76.12 12/27/2016 Ot 793.82 INCONCLUSIVE MAMMOGRAM 12/27/2016 Ot V76.12 OTH SCREEN MAMMO-MALIGN NEOPLASM OF TAYA 12/27/2016 Ot 793.80 UNSPEC ABNORMAL MAMMOGRAM 12/27/2016 CARMELA GUERRA MD Ot V76.12 OTH SCREEN MAMMO-MALIGN NEOPLASM OF TAYA 12/27/2016 CARMELA GUERRA MD Ot Z12.31 ENCNTR SCREEN MAMMOGRAM FOR MALIGNANT NE 12/27/2016 Ot 793.82 INCONCLUSIVE MAMMOGRAM 12/27/2016 Ot V76.12 OTH SCREEN MAMMO-MALIGN NEOPLASM OF TAYA 12/27/2016 Ot 793.80 UNSPEC ABNORMAL MAMMOGRAM 12/27/2016 CARMELA GUERRA MD Ot V76.12 OTH SCREEN MAMMO-MALIGN NEOPLASM OF TAYA 12/27/2016 CARMEAL GUERRA MD Ot Z12.31 ENCNTR SCREEN MAMMOGRAM FOR MALIGNANT NE 12/28/2016 Ot 793.82 INCONCLUSIVE MAMMOGRAM 12/28/2016 Ot V76.12 OTH SCREEN MAMMO-MALIGN NEOPLASM OF TAYA 12/28/2016 Ot 793.80 UNSPEC ABNORMAL MAMMOGRAM 12/28/2016 CARMELA GUERRA MD Ot V76.12 OTH SCREEN MAMMO-MALIGN NEOPLASM OF TAYA 12/28/2016 CARMELA GUERRA MD Ot Z12.31 ENCNTR SCREEN MAMMOGRAM FOR MALIGNANT NE 12/30/2016 CARMELA GUERRA MD Ot E03.9 HYPOTHYROIDISM, UNSPECIFIED 12/30/2016 CARMELA GUERRA MD Ot E78.00 PURE HYPERCHOLESTEROLEMIA, UNSPECIFIED 12/30/2016 CARMELA GUERRA MD Ot I10 ESSENTIAL (PRIMARY) HYPERTENSION 12/30/2016 CARMELA GUERRA MD Ot J18.9 PNEUMONIA, UNSPECIFIED ORGANISM 12/30/2016 CARMELA GUERRA MD Ot K21.9 GASTRO-ESOPHAGEAL REFLUX DISEASE WITHOUT 12/30/2016 CARMELA GUERRA MD Ot M32.9 SYSTEMIC LUPUS ERYTHEMATOSUS, UNSPECIFIE Procedures Results Test Result Range Complete blood count (CBC) with automated white blood cell (WBC) differential - 12/27/16 11:20 Blood leukocytes automated count (number/volume) 26.9 10*3/ uL 4.3-11.0 Blood erythrocytes automated count (number/volume) 3.84 10*6 /uL 4.35-5.85 Venous blood hemoglobin measurement (mass/volume) 12.0 g/dL 11.5-16.0 Blood hematocrit (volume fraction) 35 % 35-52 Automated erythrocyte mean corpuscular volume 92 [foz_us] 80-99 Automated erythrocyte mean corpuscular hemoglobin (mass per erythrocyte) 31 pg 25-34 Automated erythrocyte mean corpuscular hemoglobin concentration measurement ( mass/volume) 34 g/dL 32-36 Automated erythrocyte distribution width ratio 13.2 % 10.0-14.5 Automated blood platelet count (count/volume) 276 10*3/uL 130-400 Automated blood platelet mean volume measurement 9.8 [foz_us ] 7.4-10.4 Automated blood neutrophils/100 leukocytes 92 % 42-75 Automated blood lymphocytes/100 leukocytes 3 % 12-44 Blood monocytes/100 leukocytes 5 % 0-12 Automated blood eosinophils/100 leukocytes 0 % 0-10 Automated blood basophils/100 leukocytes 0 % 0-10 Blood neutrophils automated count (number/volume) 24.7 10*3 1.8-7.8 Blood lymphocytes automated count (number/volume) 0.9 10*3 1.0-4.0 Blood monocytes automated count (number/volume) 1.3 10*3 0.0-1.0 Automated eosinophil count 0.0 10*3/uL 0.0-0.3 Automated blood basophil count (count/volume) 0.0 10*3/uL 0.0-0.1 Influenza virus A and B antigen detection - 12/27/16 11:20 FLU RESULT NEGATIVE FOR INFLUENZA A AND B ANTIGENS BY IA [facility] Whole blood basic metabolic panel - 12/27/16 11:20 Serum or plasma sodium measurement (moles/volume) 135 mmol/ L 135-145 Serum or plasma potassium measurement (moles/volume) 3.0 mmol/L 3.6-5.0 Serum or plasma chloride measurement (moles/volume) 97 mmol/ L 98-107 Carbon dioxide 23 mmol/L 21-32 Serum or plasma anion gap determination (moles/volume) 15 mmol/L 5-14 Serum or plasma urea nitrogen measurement (mass/volume) 25 mg/dL 7-18 Serum or plasma creatinine measurement (mass/volume) 1.28 mg /dL 0.60-1.30 Serum or plasma urea nitrogen/creatinine mass ratio 20 NRG Serum or plasma creatinine measurement with calculation of estimated glomerular filtration rate 42 NRG Serum or plasma glucose measurement (mass/volume) 108 mg/dL 70-105 Serum or plasma calcium measurement (mass/volume) 9.2 mg/dL 8.5-10.1 Blood manual differential performed detection - 12/27/16 11:20 Blood monocytes/100 leukocytes 4 % NRG Manual blood segmented neutrophils/100 leukocytes 69 % NRG Blood band neutrophils/100 leukocytes 23 % NRG Manual blood lymphocytes/100 leukocytes 4 % NRG Manual eosinophils/100 leukocytes in nose 0 % NRG Manual blood basophils/100 leukocytes 0 % NRG Blood erythrocyte morphology finding identification NORMAL NRG Blood lactic acid measurement (moles/volume) - 12/27/16 11:57 Blood lactic acid measurement (moles/volume) 1.2 mmol/L 0.5-2.0 Bacterial blood culture - 12/27/16 11:57 Bacterial blood culture NG NRG Bacterial blood culture - 12/27/16 12:05 Bacterial blood culture NG NRG Complete blood count (CBC) with automated white blood cell (WBC) differential - 12/28/16 04:30 Blood leukocytes automated count (number/volume) 23.0 10*3/ uL 4.3-11.0 Blood erythrocytes automated count (number/volume) 3.41 10*6 /uL 4.35-5.85 Venous blood hemoglobin measurement (mass/volume) 10.6 g/dL 11.5-16.0 Blood hematocrit (volume fraction) 32 % 35-52 Automated erythrocyte mean corpuscular volume 92 [foz_us] 80-99 Automated erythrocyte mean corpuscular hemoglobin (mass per erythrocyte) 31 pg 25-34 Automated erythrocyte mean corpuscular hemoglobin concentration measurement ( mass/volume) 34 g/dL 32-36 Automated erythrocyte distribution width ratio 13.5 % 10.0-14.5 Automated blood platelet count (count/volume) 234 10*3/uL 130-400 Automated blood platelet mean volume measurement 9.8 [foz_us ] 7.4-10.4 Automated blood neutrophils/100 leukocytes 90 % 42-75 Automated blood lymphocytes/100 leukocytes 6 % 12-44 Blood monocytes/100 leukocytes 4 % 0-12 Automated blood eosinophils/100 leukocytes 0 % 0-10 Automated blood basophils/100 leukocytes 0 % 0-10 Blood neutrophils automated count (number/volume) 20.6 10*3 1.8-7.8 Blood lymphocytes automated count (number/volume) 1.5 10*3 1.0-4.0 Blood monocytes automated count (number/volume) 0.9 10*3 0.0-1.0 Automated eosinophil count 0.0 10*3/uL 0.0-0.3 Automated blood basophil count (count/volume) 0.0 10*3/uL 0.0-0.1 Whole blood basic metabolic panel - 12/28/16 04:38 Serum or plasma sodium measurement (moles/volume) 134 mmol/ L 135-145 Serum or plasma potassium measurement (moles/volume) 3.9 mmol/L 3.6-5.0 Serum or plasma chloride measurement (moles/volume) 102 mmol /L 98-107 Carbon dioxide 22 mmol/L 21-32 Serum or plasma anion gap determination (moles/volume) 10 mmol/L 5-14 Serum or plasma urea nitrogen measurement (mass/volume) 20 mg/dL 7-18 Serum or plasma creatinine measurement (mass/volume) 0.79 mg /dL 0.60-1.30 Serum or plasma urea nitrogen/creatinine mass ratio 25 NRG Serum or plasma creatinine measurement with calculation of estimated glomerular filtration rate > NRG Serum or plasma glucose measurement (mass/volume) 83 mg/dL 70-105 Serum or plasma calcium measurement (mass/volume) 8.5 mg/dL 8.5-10.1 Automated blood complete blood count (hemogram) panel - 12/29/16 04:32 Blood leukocytes automated count (number/volume) 12.7 10*3/ uL 4.3-11.0 Blood erythrocytes automated count (number/volume) 3.12 10*6 /uL 4.35-5.85 Venous blood hemoglobin measurement (mass/volume) 9.6 g/dL 11.5-16.0 Blood hematocrit (volume fraction) 30 % 35-52 Automated erythrocyte mean corpuscular volume 95 [foz_us] 80-99 Automated erythrocyte mean corpuscular hemoglobin (mass per erythrocyte) 31 pg 25-34 Automated erythrocyte mean corpuscular hemoglobin concentration measurement ( mass/volume) 33 g/dL 32-36 Automated erythrocyte distribution width ratio 13.6 % 10.0-14.5 Automated blood platelet count (count/volume) 233 10*3/uL 130-400 Automated blood platelet mean volume measurement 11.1 [foz_ us] 7.4-10.4 Comprehensive metabolic panel - 12/29/16 04:32 Serum or plasma sodium measurement (moles/volume) 142 mmol/ L 135-145 Serum or plasma potassium measurement (moles/volume) 4.1 mmol/L 3.6-5.0 Serum or plasma chloride measurement (moles/volume) 113 mmol /L 98-107 Carbon dioxide 21 mmol/L 21-32 Serum or plasma anion gap determination (moles/volume) 8 mmol/L 5-14 Serum or plasma urea nitrogen measurement (mass/volume) 8 mg /dL 7-18 Serum or plasma creatinine measurement (mass/volume) 0.63 mg /dL 0.60-1.30 Serum or plasma urea nitrogen/creatinine mass ratio 13 NRG Serum or plasma creatinine measurement with calculation of estimated glomerular filtration rate > NRG Serum or plasma glucose measurement (mass/volume) 88 mg/dL 70-105 Serum or plasma calcium measurement (mass/volume) 8.5 mg/dL 8.5-10.1 Serum or plasma total bilirubin measurement (mass/volume) 0.3 mg/dL 0.1-1.0 Serum or plasma alkaline phosphatase measurement (enzymatic activity/volume) 83 U/L 40-136 Serum or plasma aspartate aminotransferase measurement (enzymatic activity/ volume) 23 U/L 5-34 Serum or plasma alanine aminotransferase measurement (enzymatic activity/volume ) 19 U/L 0-55 Serum or plasma protein measurement (mass/volume) 5.6 g/dL 6.4-8.2 Serum or plasma albumin measurement (mass/volume) 2.9 g/dL 3.2-4.5 Automated blood complete blood count (hemogram) panel - 12/30/16 04:37 Blood leukocytes automated count (number/volume) 7.6 10*3/ uL 4.3-11.0 Blood erythrocytes automated count (number/volume) 3.09 10*6 /uL 4.35-5.85 Venous blood hemoglobin measurement (mass/volume) 9.6 g/dL 11.5-16.0 Blood hematocrit (volume fraction) 29 % 35-52 Automated erythrocyte mean corpuscular volume 94 [foz_us] 80-99 Automated erythrocyte mean corpuscular hemoglobin (mass per erythrocyte) 31 pg 25-34 Automated erythrocyte mean corpuscular hemoglobin concentration measurement ( mass/volume) 33 g/dL 32-36 Automated erythrocyte distribution width ratio 13.3 % 10.0-14.5 Automated blood platelet count (count/volume) 259 10*3/uL 130-400 Automated blood platelet mean volume measurement 10.3 [foz_ us] 7.4-10.4 Whole blood basic metabolic panel - 12/30/16 04:37 Serum or plasma sodium measurement (moles/volume) 140 mmol/ L 135-145 Serum or plasma potassium measurement (moles/volume) 3.9 mmol/L 3.6-5.0 Serum or plasma chloride measurement (moles/volume) 106 mmol /L 98-107 Carbon dioxide 22 mmol/L 21-32 Serum or plasma anion gap determination (moles/volume) 12 mmol/L 5-14 Serum or plasma urea nitrogen measurement (mass/volume) 9 mg /dL 7-18 Serum or plasma creatinine measurement (mass/volume) 0.68 mg /dL 0.60-1.30 Serum or plasma urea nitrogen/creatinine mass ratio 13 NRG Serum or plasma creatinine measurement with calculation of estimated glomerular filtration rate > NRG Serum or plasma glucose measurement (mass/volume) 99 mg/dL 70-105 Serum or plasma calcium measurement (mass/volume) 9.1 mg/dL 8.5-10.1 Encounters ACCT No. Visit Date/Time Discharge Status Pt. Type Provider Facility Loc./Unit Complaint [id number] 01/13/2017 05:49:00 2016 15:07:00 DIS Outpatient DANIEL JENSEN, JUDD Smalls [facility] PREOP HX COLON CANCER;ANEMIA [id number] 12/27/2016 12:40:00 2016 14:20:00 DIS Inpatient CARMELA GUERRA MD [facility] 4TH PNEUMONIA RUL [id number] 09/08/2013 10:03:00 2012 23:59:59 CLS Outpatient CARMELA GUERRA MD [facility] RAD SCREENING [id number] 01/08/2016 09:33:00 ACT Outpatient CARMELA GUERRA MD [facility] RAD SCREENING [id number] 04/27/2012 09:16:00 Document Registration [id number] 04/08/2012 09:08:00 Document Registration [id number] 05/01/2011 06:53:00 Document Registration [id number] 10/29/2010 12:43:00 Document Registration
--- OUTSIDE RECORDS SUMMARY | 2017-01-15 08:50 | XMS REPORT | Continuity of Care Document ---
Author Author [facility] Organization [facility] Address Unknown Phone Unavailable Allergies Active Description Code Type Severity Reaction Onset Reported/Identified Relationship to Patient Clinical Status Yes PCN PCN Unknown N/A 05/01/2011 Yes SULFA SULFA Unknown N/A 05/01/2011 Yes Penicillins [id number] Drug Allergy Unknown N/A 12/29/2016 Yes Sulfa (Sulfonamide Antibiotics) [id number] Drug Allergy Unknown N/A 12/29/2016 Medications Problems [...] INFLUENZA A AND B ANTIGENS BY IA [facility] Whole blood basic metabolic panel - 12/27/16 [...] Status Pt. Type Provider Facility Loc./Unit Complaint [id number] 01/13/2017 05:49:00 2016 15:07:00 DIS Outpatient DANIEL JENSEN, JUDD Smalls [facility] PREOP HX COLON CANCER;ANEMIA [id number] 12/27/2016 12:40:00 2016 14:20:00 DIS Inpatient CARMELA GUERRA MD [facility] 4TH PNEUMONIA RUL [id number] 09/08/2013 10:03:00 2012 23:59:59 CLS Outpatient CARMELA GUERRA MD [facility] RAD SCREENING [id number] 01/08/2016 09:33:00 ACT Outpatient CARMELA GUERRA MD [facility] RAD SCREENING [id number] 04/27/2012 09:16:00 Document Registration [id number] 04/08/2012 09:08:00 Document Registration [id number] 05/01/2011 06:53:00 Document Registration [id number] 10/29/2010 12:43:00 Document Registration
[2017-01-15] MEDS ORDERED: 1/2 NS IV SOLUTION 1,000 ML IV STA (08:53)
[2017-01-15] MEDS ORDERED: NALOXONE 0.4 MG/ML 1 ML (NARCAN) VIAL IVP PRN (09:00)
[2017-01-15] MEDS ORDERED: FLUMAZENIL (ROMAZICON) 0.1 MG/ML 5 ML VIAL INJ PRN (09:00)
--- NOTE | 2017-01-15 09:15 | Pre-Op Note & Conscious Sedat ---
Pre-Operative Progress Note H&P Reviewed The H&P was reviewed, patient examined and no changes noted. Date H&P Reviewed: Jan 15, 2017 Time H&P Reviewed: 09:15 Conscious Sedation Pre-Proced ASA Class: 2 Airway Mallampati Classification: (seminole appropriate class) I. II. III, IV Lungs Heart ASA score ASA 1: a normal healthy patient ASA 2: a patient with a mild systemic disease (mid diabetes, controlled hypertension, obesity ASA 3: a patient with a severe systemic disease that limits activity (angina , COPD, prior Myocardial infarction) ASA 4: a patient with an incapacitating disease that is a constant threat to life (CHF, renal failure) ASA 5: a moribund patient not expected to survive 24 hrs. (ruptured aneurysm) ASA 6: a declared brain patient whose organs are being harvested. For emergent operations, add the letter E after the classification Grade 3 Sedation Plan: Analgesia, Amnesia, Plan communicated to team members, Discussed options with patient/fam, Discussed risks with patient/fam Note The patient is an appropriate candidate to undergo the planned procedure, sedation, and anesthesia. The patient immediately re-assessed prior to indication. JUDD SANCHEZ MD Jan 15, 2017 09:15
[2017-01-15 09:22] VITALS: BP 120/70
[2017-01-15] MEDS ORDERED: POTA99TA21 PO (09:27)
--- NOTE | 2017-01-15 09:32 | HISTORY AND PHYSICAL ---
DICTATING PHYSICIAN: Dr. Angeles DATE OF ADMISSION: 01/15/2017 Mrs. Atkinson is a 66-year-old white female referred by Dr. Herrmann for panendoscopy. She was recently admitted for pneumonia and was noted to have anemia, reporting a history of intermittent black stools. She had a CT scan which revealed esophageal dilatation. There is a family history for colon cancer the index case being her father diagnosed in his early 70s. She last underwent colonoscopy 5-1/2 years ago with recommendations for a repeat surveillance colonoscopy in 5 years. She has had problems with chronic cough. She was noted to have right upper lobe infiltrate was treated with antibiotics. She did have a leukocytosis with a left shift. Still reports postnasal drip. She denies dysphasia or odynophagia. She denies any abdominal symptoms but did have several dark stools approximately 2 weeks ago. Risk factors for include chronic nonsteroidal medication usage in the form of Relafen as well as a history of lupus. She does take Prilosec reporting no past history of known peptic ulcer disease or previous history of upper GI bleeding or known lower GI tract bleeding. PAST SURGICAL HISTORY: Significant for a partial hysterectomy in 1973. She reports no other past surgical history. ALLERGIES: 1. She reports past history of PENICILLIN allergy. 2. SULFA allergy. PAST MEDICAL HISTORY: 1. Other than history of lupus and recent hospitalization for pneumonia. She has no history of hypertension, hyperlipidemia as well as thyroid replacement. 2. Reported history of gastroesophageal reflux. MEDICATIONS: 1. Amlodipine 5 mg daily. 2. Vytorin 1 tablet daily. 3. HCTZ 25 mg daily. 4. L-thyroxine 112 mcg daily. 5. Loratadine 10 mg daily. 6. Nabumetone 750 mg daily. 7. Omeprazole 20 mg daily. FAMILY HISTORY: Pertinent for her father who was diagnosed with colon cancer at age of 71. She is unaware of any other family history for GI tract malignancy. PHYSICAL EXAMINATION: Reveals a white female, appears to be in no acute distress. Conjunctiva were mildly pallorous. sclerae anicteric. Blood pressure 122/68. Weight is 157.4. NECK: Reveals no JVD, adenopathy or bruits. CHEST: Clear. CV: Reveals regular rate and rhythm without murmur, S3 or S4. ABDOMEN: Soft, supple without masses, organomegaly or tenderness. EXTREMITIES: Reveal no cyanosis, clubbing, or edema. ASSESSMENT: The patient was set-up for panendoscopy on 01/15. Prep instructions with split dose Colyte were given and questions were answered. I thank you for the referral of this pleasant lady. Sincerely, William Angeles Job ID: [id number] Dictated Date: 01/07/2017 20:24:00 Recruit Instructor Date: 01/08/2017 09:49:07/joan
[2017-01-15] MEDS ORDERED: MIDAZOLAM 2 MG/2 ML (VERSED) VIAL ONE ×3 (09:41→10:47)
[2017-01-15] MEDS ORDERED: LIDOCAINE JELLY 2% (XYLOCAINE) 5 ML TUBE ONE (09:41)
[2017-01-15] MEDS ORDERED: fentaNYL INJECTION 100 MCG/2 ML AMP ONE ×2 (09:41)
[2017-01-15] MEDS ORDERED: HURRICAINE EXT TUBE (BENZOCAINE) ONE (09:42)
[2017-01-15] MEDS: fentaNYL INJECTION 100 MCG/2 ML AMP IVP PRN ×3 (09:45→10:30)
[2017-01-15] MEDS: MIDAZOLAM 2 MG/2 ML (VERSED) VIAL IVP PRN ×6 (09:56→10:50)
[2017-01-15 11:25] VITALS: BP 127/62
[2017-01-15 11:55] VITALS: BP 105/54
[2017-01-15 12:10] VITALS: BP 105/54
--- NOTE | 2017-01-17 08:43 | PROCEDURE REPORT ---
PROCEDURE PHYSICIAN: JUDD SANCHEZ DATE OF PROCEDURE: 01/15/2017 PANENDOSCOPY SUMMARY: Panendoscopy summary was done for diagnostic purposes due to history of anemia, as well as family history for colon cancer. PROCEDURE: The patient was placed in left lateral decubitus position. Prior to undergoing colonoscopy, digital rectal evaluation was performed. Anal sphincter tone was normal and the perianal reflex was intact. No abnormalities were noted to digital inspection of the anal canal or distal rectal vault. The colonoscope was then inserted into the rectum and under direct visualization, advanced to the cecum. The cecum was identified by identification of ileocecal valve and cecal strap, as well as appendiceal orifice. Photographic documentation was obtained. Careful inspection was made as the colonoscope was withdrawn. FINDINGS: There was no evidence for internal or external hemorrhoids. The rectum was unremarkable. Haustral hypertrophy and some narrowing as well as corkscrewing of the colon was noted with a moderate number of small to medium size sigmoid diverticulum. There was no evidence to suggest diverticulitis. Diverticulum were present throughout the descending colon as well. There was some mild dilatation and tortuosity of the transverse colon, which was otherwise unremarkable as was the hepatic flexure, ascending colon, and cecum. ASSESSMENT: Moderate to severe diverticular disease is present predominantly involving the sigmoid colon and descending colon with an otherwise unremarkable colonoscopy to the cecum. No evidence for neoplasia or potential bleeding sites were identified. There was no evidence for gross blood in the GI tract on today's procedure. We then proceeded with EGD evaluation. EGD: The endoscope was inserted into the oral cavity and under direct visualization, the esophagus was intubated. The scope was passed down the esophagus, through the stomach, and into second portion of the duodenum. Careful inspection was made as the endoscope was withdrawn. FINDINGS: The esophagus was dilated. The lower esophageal sphincter was widely patent at all times, and incompetent. There was cobblestoning of the distal esophagus without overt evidence for ulceration. Photographic documentation was obtained. There was a small to medium size hiatal hernia present. No evidence to suggest Thompson's change was noted and no definitive bleeding sites were identified. No evidence for erosive esophagitis was present. The cardia, fundus and antrum of the stomach were normal, as was the pylorus, pyloric channel, duodenal bulb, and second portion of the duodenum. ASSESSMENT: Small to medium size hiatal hernia is present with evidence for lower esophageal sphincter incompetency. The lower esophageal sphincter remained mildly patent at all times. There was cobblestoning of the distal esophagus but without overt evidence for ulceration. Biopsies were obtained and submitted for histopathology with evidence for significant presbyesophagus but no potential bleeding sites were noted on today's EGD. There was no evidence for blood in the upper GI tract or on colonoscopy today. If the patient does have evidence for ongoing large volume GI tract blood loss, would advocate capsule endoscopy. I thank you for the referral of this pleasant lady. Sincerely, Job ID: [id number] Dictated Date: 01/15/2017 13:15:31 Clinical Psychiatrist Date: 01/17/2017 08:35:57 / tanner
== END 2017-01-15 12:10 | disposition home or self-care (01) ==
LOC: ENDO 08:45
PROVIDERS: ATTEND Internal Medicine
DX: K57.30 Diverticulosis of large intestine without perforation or abscess without bleeding (principal); K21.9 Gastro-esophageal reflux disease without esophagitis; K44.9 Diaphragmatic hernia without obstruction or gangrene; D64.9 Anemia, unspecified; Z80.0 Family history of malignant neoplasm of digestive organs
CPT/HCPCS: 88305

== ENCOUNTER → 2017-01-20 | Outpatient (CLI) | payer OTHER, MEDICARE ==
[~2017-01-20] MED LIST changes: +POTA99TA21 PO
--- OUTSIDE RECORDS SUMMARY | 2017-01-20 10:31 | XMS REPORT | Continuity of Care Document ---
Author Author [facility] Organization [facility] Address Unknown Phone Unavailable Care Team Providers Care [employer] Name Role Phone CARMELA GUERRA MD PCP Insurance Providers Payer Name Policy Number Subscriber Name Relationship [employer] [id number] Karan Barlow Jr 01 [employer] [id number] Ariana Barlow 19 Self / Same As Patient Advance Directives Directive Response Recorded Date/Time Advance Directives No 01/15/17 9:20am Health Care Power of Food Service Steward No 01/15/17 9:20am Organ Donor No 01/15/17 9:20am Resuscitation Status Full Code 01/15/17 9:20am Problems Active Problems Medical Problem Onset Date Status Pneumonia Unknown Acute Medications Current Home Medications Medication Dose Units Route Directions Days/Qty Instructions Start Date Loratadine 10 Mg 10 Mg Oral Daily 12/27/16 Levothyroxine Sodium 112 Mcg 112 Mcg Oral Daily 12/27/16 Hydrochlorothiazide 25 Mg 25 Mg Oral Daily 12/27/16 Amlodipine Besylate 5 Mg 5 Mg Oral Daily 12/27/16 Ezetimibe/Simvastatin 1 Each 1 Tab Oral Daily 12/27/16 Multivitamin 1 Each 1 Tab Oral Daily 12/27/16 Omeprazole 20 Mg 20 Mg Oral Daily 12/28/16 Nabumetone 750 Mg 1,500 Mg Oral Daily 12/28/16 Lactobacillus Rhamnosus Gg 1 Each 1 Cap Oral Twice A Day 12/28/16 Albuterol Sulfate 8.5 Gm 1-2 Puff Inhalation Twice Daily And Prn 1 12/15 Potassium Gluconate Unknown Strength 99 Mg Oral 01/15/17 Past Home Medications Medication Directions Ordered Status Levofloxacin 500 Mg Tablet, 500 Mg Oral Daily 12/27/16 Discontinued Nabumetone 750 Mg Tablet, 1500 Mg Oral Daily 12/27/16 Discontinued Omeprazole Magnesium 20 Mg Tablet.dr, 20 Mg Oral Daily 12/27/16 Discontinued Levofloxacin 750 Mg Tablet, 750 Mg Oral Daily 12/30/16 Discontinued Lactobacillus Acidophilus 1 Each Tab.chew, 1 Each Oral Three Times A Day 12/15 Discontinued Social History Social History Problem Response Recorded Date/Time Alcohol Use Denies Use 01/15/2017 9:20am Recreational Drug Use No 01/15/2017 9:20am Recent Foreign Travel No 01/15/2017 9:23am Recent Infectious Disease Exposure No 01/15/2017 9:23am Smoking Status Never a Smoker 01/15/2017 9:20am Recent Hopitalizations Yes 01/15/2017 9:20am Query Response Start Date Stop Date Smoking Status Never a Smoker Hospital Discharge Instructions No hospital discharge instructions. Plan of Care Discharge Date 01/15/17 12:10pm Instructions/Education Provided COLONOSCOPY EGD-ESOPHAGOGASTRODUODENOSCOPY Prescriptions See Medication Section Functional Status No functional status results. Allergies, Adverse Reactions, Alerts Allergen Type Severity Reaction Status Last Updated Penicillins ([id number]) Allergy Unknown Active 01/15/17 Sulfa (Sulfonamide Antibiotics) ([id number]) Allergy Unknown Active Immunizations No immunization records. Vital Signs Acute Vital Signs Vital Response Date/Time Temperature (Fahrenheit) 97.5 degrees F (97.6 - 99.5) 01/15/2017 12:10pm Temperature (Calculated Celsius) 36.91664 degrees C (36.4 - 37.5) 01/15/2017 12:10pm Temperature Source Tympanic 01/15/2017 12:10pm Pulse Rate (adult) 64 bpm (60 - 90) 01/15/2017 12:10pm Respiratory Rate 20 bpm (12 - 24) 01/15/2017 12:10pm O2 Sat by Pulse Oximetry 93 % (88 - 100) 01/15/2017 12:10pm Blood Pressure 105/54 mm Hg 01/15/2017 12:10pm Blood Pressure Mean 87 mm Hg 01/15/2017 9:22am Pain Numeric Pain Scale 0-No Pain 01/15/2017 12:10pm Pain Intensity 0 01/15/2017 11:55am Height (Feet) 5 feet 01/15/2017 9:25am Height (Inches) 2.00 inches 01/15/2017 9:25am Height (Calculated Centimeters) 157.192142 cm 01/15/2017 9:25am Weight (Pounds) 158 pounds 01/15/2017 9:25am Weight (Ounces) 0.0 oz 01/15/2017 9:25am Weight (Calculated Grams) 67255.60 gm 01/15/2017 9:25am Weight (Calculated Kilograms) 71.937625 kilograms 01/15/2017 9:25am Calculated BMI 28.9 01/15/2017 9:25am Capillary Refill Capillary Refill Less Than 3 Seconds 12/27/2016 10:47am Results Laboratory Results Test Name Result Units Flags Reference Collection Date/Time Result Date/ Time Comments White Blood Count 7.6 10^3/uL 4.3-11.0 12/30/2016 4:37am 12/30/2016 5: 19am Red Blood Count 3.09 10^6/uL L 4.35-5.85 12/30/2016 4:37am 12/30/2016 5: 19am Hemoglobin 9.6 G/DL L 11.5-16.0 12/30/2016 4:37am 12/30/2016 5:19am Hematocrit 29 % L 35-52 12/30/2016 4:37am 12/30/2016 5:19am Mean Corpuscular Volume 94 FL 80-99 12/30/2016 4:37am 12/30/2016 5: 19am Mean Corpuscular Hemoglobin 31 PG 25-34 12/30/2016 4:37am 12/30/2016 5: 19am Mean Corpuscular Hemoglobin Concent 33 G/DL 32-36 12/30/2016 4:37am 11/2016 5:19am Red Cell Distribution Width 13.3 % 10.0-14.5 12/30/2016 4:37am 2016 5:19am Platelet Count 259 10^3/uL 130-400 12/30/2016 4:37am 12/30/2016 5:19am Mean Platelet Volume 10.3 FL 7.4-10.4 12/30/2016 4:37am 12/30/2016 5: 19am Neutrophils (%) (Auto) 90 % H 42-75 12/28/2016 4:3012/28/2016 5:05am Lymphocytes (%) (Auto) 6 % L 12-44 12/28/2016 4:30am 12/28/2016 5:05am Monocytes (%) (Auto) 4 % 0-12 12/28/2016 4:3012/28/2016 5:05am Eosinophils (%) (Auto) 0 % 0-10 12/28/2016 4:3012/28/2016 5:05am Basophils (%) (Auto) 0 % 0-10 12/28/2016 4:3012/28/2016 5:05am Neutrophils # (Auto) 20.6 X 10^3 H 1.8-7.8 12/28/2016 4:3012/28/2016 5 :05am Lymphocytes # (Auto) 1.5 X 10^3 1.0-4.0 12/28/2016 4:3012/28/2016 5: 05am Monocytes # (Auto) 0.9 X 10^3 0.0-1.0 12/28/2016 4:3012/28/2016 5: 05am Eosinophils # (Auto) 0.0 10^3/uL 0.0-0.3 12/28/2016 4:30am 12/28/2016 5 :05am Basophils # (Auto) 0.0 10^3/uL 0.0-0.1 12/28/2016 4:3012/28/2016 5: 05am Neutrophils % (Manual) 69 % 12/27/2016 11:20am 12/27/2016 11:48am Band Neutrophils 23 % 12/27/2016 11:20am 12/27/2016 11:48am Lymphocytes % (Manual) 4 % 12/27/2016 11:20am 12/27/2016 11:48am Monocytes % (Manual) 4 % 12/27/2016 11:20am 12/27/2016 11:48am Eosinophils % (Manual) 0 % 12/27/2016 11:20am 12/27/2016 11:48am Basophils % (Manual) 0 % 12/27/2016 11:20am 12/27/2016 11:48am Blood Morphology Comment NORMAL 12/27/2016 11:20am 12/27/2016 11: 48am Sodium Level 140 MMOL/L 135-145 12/30/2016 4:37am 12/30/2016 5:34am Potassium Level 3.9 MMOL/L 3.6-5.0 12/30/2016 4:37am 12/30/2016 5:34am Chloride Level 106 MMOL/L 98-107 12/30/2016 4:37am 12/30/2016 5:34am Carbon Dioxide Level 22 MMOL/L 21-32 12/30/2016 4:37am 12/30/2016 5: 34am Anion Gap 12 MMOL/L 5-14 12/30/2016 4:37am 12/30/2016 5:34am Blood Urea Nitrogen 9 MG/DL 7-18 12/30/2016 4:37am 12/30/2016 5:34am Creatinine 0.68 MG/DL 0.60-1.30 12/30/2016 4:37am 12/30/2016 5:34am BUN/Creatinine Ratio 13 12/30/2016 4:37am 12/30/2016 5:34am Estimat Glomerular Filtration Rate > 60 12/30/2016 4:37am 2016 5:34am GFR INTERPRETIVE DATA UNITS FOR ESTIMATED GFR (eGFR): mL/min/1.73 M2 REFERENCE RANGE FOR ESTIMATED GFR (eGFR) eGFR NORMAL eGFR >60 MODERATELY DECREASED eGFR 30-59 SEVERLY DECREASED eGFR 15-29 KIDNEY FAILURE <15 (OR DIALYSIS) Glucose Level 99 MG/DL 70-105 12/30/2016 4:37am 12/30/2016 5:34am Calcium Level 9.1 MG/DL 8.5-10.1 12/30/2016 4:37am 12/30/2016 5:34am Total Bilirubin 0.3 MG/DL 0.1-1.0 12/29/2016 4:32am 12/29/2016 8:03am Alkaline Phosphatase 83 U/L 40-136 12/29/2016 4:32am 12/29/2016 8:03am Aspartate Amino Transf (AST/SGOT) 23 U/L 5-34 12/29/2016 4:32am 2016 8:03am Alanine Aminotransferase (ALT/SGPT) 19 U/L 0-55 12/29/2016 4:32am 12/29 8:03am Total Protein 5.6 G/DL L 6.4-8.2 12/29/2016 4:32am 12/29/2016 8:03am Albumin 2.9 G/DL L 3.2-4.5 12/29/2016 4:32am 12/29/2016 8:03am Lactic Acid Level 1.2 MMOL/L 0.5-2.0 12/27/2016 11:57am 12/27/2016 12: 26pm Lactic acid levels can appear lower than actual values in patients receiving NAC (N-Acetyl Cysteine). Microbiology Results Procedure Source Result Collection Date/Time Result Date/Time Blood Culture Peripheral, Lt Ac No growth 12/27/2016 11:57am 12/28/2016 3: 56pm Blood Culture Peripheral, Rt Ac No growth 12/27/2016 12:05pm 12/28/2016 3: 56pm Procedures Procedure Status Date Provider(s) Diagnostic colonoscopy Completed 01/15/17 JUDD SANCHEZ MD Esophagogastroduodenoscopy (EGD) with dilation Completed 01/15/17 JUDD SANCHEZ MD Encounters Encounter Location Arrival/Admit Date Discharge/Depart Date Attending Provider Departed [facility] 01/15/17 8:45am 12:10pm JUDD SANCHEZ MD Departed Clinic [facility] 01/13/17 5:49am 01/13/17 3: 07pm JUDD SANCHEZ MD Discharged Inpatient [facility] 12/27/16 12:40pm 2:20pm CARMELA GUERRA MD
--- NOTE | 2017-01-20 12:20 | Diagnostic Imaging Report ---
PA and lateral chest at 1032 hours. INDICATION: Pneumonia. FINDINGS: The heart size is within normal limits and stable compared to 12/29/16. The previous study did show a mass like area of consolidation in the right upper lung. On this exam, however, the right lung is essentially clear and well aerated. There is only minimal if any residual pneumonia/atelectasis still present in this area. The right lung base and left lung remain clear. The mediastinum is not widened. The osseous structures are intact. IMPRESSION: 1. The appearance of the chest has improved significantly since the prior exam as the right upper lung is much better aerated. There is only minimal if any residual pneumonia/atelectasis present in this area. 2. The overall appearance of the chest is otherwise stable. No new abnormality has developed. Dictated by: Dictated on workstation # [id number]
== END ==
LOC: RAD 10:27
PROVIDERS: ATTEND Family Medicine
DX: J18.9 Pneumonia, unspecified organism (principal)
CPT/HCPCS: 71020

== ENCOUNTER → 2017-06-30 | Outpatient (CLI) | payer OTHER, MEDICARE | LOC: RAD 10:07 | PROVIDERS: ATTEND Family Medicine | DX: Z12.31 Encounter for screening mammogram for malignant neoplasm of breast (principal) | CPT/HCPCS: 77067 ==

== ENCOUNTER → 2017-07-12 | Outpatient (CLI) | payer OTHER, MEDICARE ==
[~2017-07-12] MED LIST changes: +BARIUM SUSPENSION 2.1% (VANILLA SILQ) 450 ML PO ONE; +CATHETER FLUSH 10 ML SYR IV PRN; +IOHEXOL 350 MG/ML 100 ML (OMNIPAQUE 350) VIAL IV ONE; +NS 100 ML (IVPB) BAG IV ONE
[2017-07-12 09:37] LABS: BLOOD UREA NITROGEN 18 MG/DL (7-18); BUN/CREATININE RATIO 23; CREATININE SERUM 0.79 MG/DL (0.60-1.30); GFR ESTIMATED > 60
--- NOTE | 2017-07-12 11:57 | Diagnostic Imaging Report ---
PROCEDURE: CT abdomen and pelvis with contrast. TECHNIQUE: Multiple contiguous axial images were obtained through the abdomen and pelvis after administration of intravenous contrast. INDICATION: Right upper quadrant mass, left lower quadrant pain. Lung bases are clear. Liver appears normal. The gallbladder is present. Portal vein is patent. Common duct is not dilated. Pancreas is normal. Spleen is not enlarged. Adrenals are normal. Kidneys appear normal. There is a sliding hiatal hernia. Small intestines are not dilated. The appendix is not seen. Uterus is surgically absent. Urinary bladder appears normal. There are no pathologic masses or fluid collections seen in the pelvis. There is no intraperitoneal free air or free fluid. IMPRESSION: No acute abnormality seen in the abdomen or pelvis. There are postsurgical changes. Dictated by: Dictated on workstation # [id number]
== END ==
LOC: RAD 08:58
PROVIDERS: ATTEND Surgery
DX: R10.31 Right lower quadrant pain (principal); R10.32 Left lower quadrant pain; R19.01 Right upper quadrant abdominal swelling, mass and lump; R10.12 Left upper quadrant pain
CPT/HCPCS: 36415; 74177; 82565; 84520

== ENCOUNTER → 2019-04-03 | Outpatient (CLI) | payer OTHER, MEDICARE ==
[~2019-04-03] MED LIST changes: -BARIUM SUSPENSION 2.1% (VANILLA SILQ) 450 ML PO ONE; -CATHETER FLUSH 10 ML SYR IV PRN; -IOHEXOL 350 MG/ML 100 ML (OMNIPAQUE 350) VIAL IV ONE; -NS 100 ML (IVPB) BAG IV ONE
--- NOTE | 2019-04-03 14:29 | Diagnostic Imaging Report ---
INDICATION: Low back pain. TIME OF EXAM: 1:18 PM FINDINGS: Three views lumbar spine were obtained. Curvature is normal. There is anterolisthesis of L4 on L5 and L5 on S1. Vertebral body heights are maintained. No acute compression fracture is seen. Fairly normal height and signal intensity to the discs is identified. IMPRESSION: Lumbar listhesis. No acute bony abnormality is detected. Dictated by: Dictated on workstation # [id number]
--- NOTE | 2019-04-03 14:34 | Diagnostic Imaging Report ---
INDICATION: Sciatica. TECHNIQUE: Multiple views of the sacroiliac joints were obtained. FINDINGS: There is no ankylosis or osseous erosive change. There is mild sclerosis at the left SI joint. IMPRESSION: Left sacroiliitis. No other significant abnormality is seen. Dictated by: Dictated on workstation # [id number]
== END ==
LOC: RAD 13:09
PROVIDERS: ATTEND Family Medicine
DX: M43.16 Spondylolisthesis, lumbar region (principal); M46.1 Sacroiliitis, not elsewhere classified
CPT/HCPCS: 72100; 72202

== ENCOUNTER → 2020-01-19 | Outpatient (CLI) | payer MEDICARE, OTHER ==
[~2020-01-19] MED LIST changes: -OMEP20CA12 PO; +OMEP20CA18 PO
--- NOTE | 2020-01-19 13:30 | Diagnostic Imaging Report ---
EXAMINATION: Digital mammogram bilateral screening. The current study was also evaluated with a Computer Aided Detection (CAD) system. 3-D tomosynthesis was also performed and reviewed. INDICATION: Screening. This study was compared to the prior exams of 06/30/2017 and 01/08/2016. At this time, there are no current complaints. FINDINGS: There are scattered fibroglandular densities in both breasts which could obscure a lesion. When compared to the prior study, there has been no significant change. There is no primary or secondary sign of malignancy noted. The 3D tomographic views also fail to show any sign of malignancy. IMPRESSION: 1. There is no evidence of malignancy. 2. The patient should have her annual bilateral screening mammogram on schedule in December 2020. ACR BI-RADS Category 1: Negative. Result letter will be mailed to the patient. Note: At least 10% of breast cancer is not imaged by mammography. Dictated by: Dictated on workstation # [id number]
== END ==
LOC: RAD 09:28
PROVIDERS: ATTEND Family Medicine
DX: Z12.31 Encounter for screening mammogram for malignant neoplasm of breast (principal)
CPT/HCPCS: 77067

== ENCOUNTER → 2021-02-04 | Outpatient (CLI) | payer OTHER, MEDICARE ==
[~2021-02-04] MED LIST changes: +NABU-90 PO; -NABU750T PO
--- NOTE | 2021-02-04 10:07 | Diagnostic Imaging Report ---
INDICATION: Postmenopausal female. COMPARISON: None. FINDINGS: AP Spine L1-L4: [BMD (g/cm2): 0.851] [T-Score: -2.9] [Z-Score: -1.4] [BMD Previous: NA] [BMD % Change: NA] LT Hip Neck: [BMD (g/cm2): 0.592] [T-Score: -3.2] [Z-Score: -1.6] LT Hip Total: [BMD (g/cm2):0.621] [T-Score:-3.1] [Z-Score: -1.7] [BMD Previous: NA] [BMD % Change: NA] RT Hip Neck: [BMD (g/cm2):0.658] [T-Score:-2.7] [Z-Score:-1.2] RT Hip Total: [BMD (g/cm2):0.635] [T-score:-3.0] [Z-Score:-1.6] [BMD Previous:NA] [BMD % Change:NA] *Indicates significant change from prior examination based on 95% confidence level. World Health Organization criteria for BMD interpretation classify patients as Normal (T-score at or above -1.0), Osteopenic (T-score between -1.0 and -2.5) or Osteoporotic (T-score at or below -2.5). LIMITATIONS AND MODIFICATION: None. FRACTURE RISK (FRAX SCORE): The ten year probability of (%): Major Osteoporotic Fracture: [NA] Hip Fracture: [NA] IMPRESSION: 1. Osteoporosis. 2. Baseline examination. 3. See below National Osteoporosis Foundation guidelines on when to potentially initiate pharmacologic therapy. Based on the National Osteoporosis Foundation Guidelines, pharmacologic treatment should be initiated in any of the following, unless clinical conditions suggest otherwise: * Any patient with prior fragility fracture of the hip or vertebrae. A spine fracture indicates 5X risk for subsequent spine fracture and 2X risk for subsequent hip fracture. * Osteoporosis (T-score <-2.5). * Postmenopausal women and men age 50 and older with low bone mass/osteopenia (T-score between -1.0 and -2.5) by DXA and 10-year major osteoporotic fracture greater than 20% or a 10-year probability of hip fracture greater than 3%. These fracture risks are supplied above in the FRAX score, if applicable. * Clinician judgement and/or patient preferences may indicate treatment for people with 10-year fracture probabilities above or below these levels. Dictated by: Dictated on workstation # [id number]
--- NOTE | 2021-02-04 12:27 | Diagnostic Imaging Report ---
INDICATION: Routine screening. COMPARISON: 01/19/2020 and 06/30/2017. TECHNIQUE: 2D and 3D bilateral screening mammography was performed with CAD. FINDINGS: Both breasts are heterogeneously dense, limiting the sensitivity of mammography. Benign nodules in the upper outer right breast are stable. No spiculated mass or malignant appearing microcalcifications are seen. The axillae are unremarkable. IMPRESSION: No mammographic features suspicious for malignancy are identified. ACR BI-RADS Category 2: Benign findings. Result letter will be mailed to the patient. Note: At least 10% of breast cancer is not imaged by mammography. Dictated by: Dictated on workstation # [id number]
== END ==
LOC: RAD 09:03
PROVIDERS: ATTEND Family Medicine
DX: Z12.31 Encounter for screening mammogram for malignant neoplasm of breast (principal); M81.0 Age-related osteoporosis without current pathological fracture; Z78.0 Asymptomatic menopausal state
CPT/HCPCS: 77063; 77067; 77080

== ENCOUNTER → 2022-09-29 | Outpatient (CLI) | payer MEDICARE, OTHER ==
[~2022-09-29] MED LIST changes: +ALBU8.5H6 IH; +EZET-81 PO; -EZET1TAB21 PO; -NABU-90 PO; +NABU-95 PO; -POTA99TA21 PO; +POTA99TA26 PO; -RT-ALBUINH IH
--- NOTE | 2022-09-29 16:12 | Diagnostic Imaging Report ---
INDICATION: Routine screening. COMPARISON: 02/04/2021 and 01/19/2020. TECHNIQUE: 2D and 3D bilateral screening mammography was performed with CAD. FINDINGS: Both breasts are heterogeneously dense, limiting the sensitivity of mammography. Benign nodules in the outer right breast are stable and most consistent with intraparenchymal lymph nodes. No spiculated mass or malignant-appearing microcalcifications are seen. The axillae are unremarkable. IMPRESSION: No mammographic features suspicious for malignancy are identified. ACR BI-RADS Category 2: Benign findings. Result letter will be mailed to the patient. Note: At least 10% of breast cancer is not imaged by mammography. Dictated by: Dictated on workstation # [id number]
--- NOTE | 2022-09-29 16:13 | Diagnostic Imaging Report ---
INDICATION: 71-year-old asymptomatic postmenopausal female COMPARISON: 02/04/2021 FINDINGS: AP Spine L1-L4: [BMD (g/cm2): 0.852] [T-Score: -2.9] [Z-Score: -1.3] [BMD Previous: 0.851] [BMD % Change: 0.1] LT Hip Neck: [BMD (g/cm2): 0.633] [T-Score: -2.9] [Z-Score: -1.2] LT Hip Total: [BMD (g/cm2):0.641] [T-Score:-2.9] [Z-Score: -1.4] [BMD Previous: 0.621] [BMD % Change: 3.2] RT Hip Neck: [BMD (g/cm2):0.646] [T-Score:-2.8] [Z-Score:-1.1] RT Hip Total: [BMD (g/cm2):0.642] [T-score:-2.9] [Z-Score:-1.4] [BMD Previous:0.635] [BMD % Change:1.1] *Indicates significant change from prior examination based on 95% confidence level. World Health Organization criteria for BMD interpretation classify patients as Normal (T-score at or above -1.0), Osteopenic (T-score between -1.0 and -2.5) or Osteoporotic (T-score at or below -2.5). LIMITATIONS AND MODIFICATION: None. FRACTURE RISK (FRAX SCORE): The ten year probability of (%): Major Osteoporotic Fracture: [na] Hip Fracture: [na] IMPRESSION: 1. Osteoporosis. 2. No significant change in bone mineral density since prior examination. 3. See below National Osteoporosis Foundation guidelines on when to potentially initiate pharmacologic therapy. Based on the National Osteoporosis Foundation Guidelines, pharmacologic treatment should be initiated in any of the following, unless clinical conditions suggest otherwise: * Any patient with prior fragility fracture of the hip or vertebrae. A spine fracture indicates 5X risk for subsequent spine fracture and 2X risk for subsequent hip fracture. * Osteoporosis (T-score <-2.5). * Postmenopausal women and men age 50 and older with low bone mass/osteopenia (T-score between -1.0 and -2.5) by DXA and 10-year major osteoporotic fracture greater than 20% or a 10-year probability of hip fracture greater than 3%. These fracture risks are supplied above in the FRAX score, if applicable. * Clinician judgement and/or patient preferences may indicate treatment for people with 10-year fracture probabilities above or below these levels. Dictated by: Dictated on workstation # [id number]
== END ==
LOC: RAD 09:36
PROVIDERS: ATTEND Family Medicine
DX: Z12.31 Encounter for screening mammogram for malignant neoplasm of breast (principal); M81.0 Age-related osteoporosis without current pathological fracture; Z78.0 Asymptomatic menopausal state
CPT/HCPCS: 77063; 77067; 77080